=== PATIENT | female | born 1970 | race Caucasian/White ===

== ENCOUNTER 2022-01-08 10:57 | Emergency (ER) | payer OTHER ==
[2022-01-08 11:14] VITALS: RESP 18; BMI 29.0
[2022-01-08 11:26] VITALS: BP 171/91; PULSE 72; TEMP 98.1
[2022-01-08 12:50] LABS: BASO % 0.2 % (0-2.0); EOS % 0.3 % (0-4.5); HEMOGLOBIN 12.7 GM/dL (10.7-15.3); LYMPH % 23.8 % (8-40); MCH 26.1 pg (25.7-33.7); MCHC 31.6 g/dl (32.0-36.0); MEAN CELL VOLUME 82.5 fl (80-96); MEAN PLT VOLUME 8.8 fl (7.5-11.1); MONO % 5.8 % (3.8-10.2); NEUT % 69.9 % (42.8-82.8); PLATELET COUNT 309 10^3/uL (134-434); RBC 4.85 M/mm3 (3.60-5.2); RDW 14.5 % (11.6-15.6); WHITE BLOOD COUNT 10.1 K/mm3 (4.0-10.0)
[2022-01-08 12:53] LABS: EPI CELLS 16 /uL (0-25.1); HYALINE CASTS 1 /uL (0-3.1); URINE APPEARANCE CLEAR; URINE BACTERIA 22 /uL (0-1359); URINE BILIRUBIN NEGATIVE (NEGATIVE); URINE COLOR YELLOW; URINE GLUCOSE (UA) TRACE (NEGATIVE); URINE KETONE NEGATIVE (NEGATIVE); URINE LEUK ESTERASE NEGATIVE (NEGATIVE); URINE NITRITE NEGATIVE (NEGATIVE); URINE PROTEIN TRACE (NEGATIVE); URINE RBC 90 /uL (0-23.9); URINE UROBILINOGEN 0.2 mg/dL (0.2-1.0); URINE WBC 8 /uL (0-25.8)
[2022-01-08 13:08] LABS: CALCIUM 9.3 mg/dL (8.5-10.1)
[2022-01-08 13:09] LABS: ALBUMIN 3.7 g/dl (3.4-5.0); BLOOD UREA NITROGEN 13.6 mg/dL (7-18)
[2022-01-08 13:12] LABS: CREATININE 0.6 mg/dL (0.55-1.3)
[2022-01-08 13:14] LABS: BILIRUBIN,TOTAL 0.4 mg/dL (0.2-1)
== END 2022-01-08 15:35 | disposition home or self-care (01) ==
LOC: JER 10:57
DX: K04.7 Periapical abscess without sinus (principal)
CPT/HCPCS: 36415; 70487-TC; 80053; 81003; 85025; 99285-25; C9803-CS; Q9967; U0003; U0005

== ENCOUNTER 2024-02-10 18:29 | Emergency (ER) | payer OTHER ==
[2024-02-10 18:35] VITALS: BP 110/78; PULSE 75; RESP 16; TEMP 98.4; BMI 23.5
== END 2024-02-10 20:00 | disposition home or self-care (01) ==
LOC: JER 18:29 → JERFT 18:29
DX: M17.12 Unilateral primary osteoarthritis, left knee (principal)
CPT/HCPCS: 73562-TC-LT-FY; 73562-TC-RT-FY; 99284-25